=== PATIENT | male | born 1960 | race Caucasian/White ===

== ENCOUNTER 2016-12-15 05:05 | Day surgery (SDC) | payer OTHER, BC ==
[2016-12-08 16:30] VITALS: BMI 33.2
--- NOTE | 2016-12-14 20:57 | PREOP ---
DATE OF ADMISSION: 12/15/2016 DATE OF SURGERY: 12/15/2016 ADMISSION DIAGNOSIS: Posterior cervical cyst. HISTORY OF PRESENT ILLNESS: This 56-year-old male has had a cyst in the posterior neck, which has recurred following previous excisions. It is becoming bothersome. Exam shows a 3-cm subcutaneous mass adjacent to scars from previous surgeries. He is now admitted for excision of this lesion under general anesthesia. PAST MEDICAL HISTORY: Primary medical doctor is Dr. Christian Escamilla. The patient does have a history of hypertension, which is improved. He has also gastroesophageal reflux disease, asthma, and a history of hearing loss. Past surgical history includes multiple knee operations, shoulder and hernia surgery He has recently quit smoking. He is now admitted for excision of this lesion. ALLERGIES TO MEDICATIONS: None known. PRESENT MEDICATIONS: Oxycodone. Bleeding history is negative. Family history is negative for bleeding or anesthesia problems. EXAMINATION: The patient is a well-developed male in no distress. Head is normal. Eyes are clear. Ears are unremarkable. Mouth and throat are unremarkable. The neck has a 3-cm firm mobile lesion in the right upper posterior neck consistent with an epidermal inclusion cyst. This is adjacent to a scar. It is 3 x 4 cm and ovoid, nontender and mobile. There is maybe a small area of skin fixation in the center but no overlying skin changes. The remainder of his head and neck examination is unremarkable. Preoperative labs are pending. IMPRESSION: Right posterior neck mass. Suspect epidermal inclusion cyst. PLAN: Excision of right posterior neck mass under general anesthesia. INFORMED CONSENT: Patient understands the indications, alternatives, nature, risks and benefits of proposed surgery, potential complications including but not limited to anesthesia, bleeding, infection, scar, numbness, and recurrence are discussed in detail. He understands and accepts these risks and wishes to proceed with surgery. Questions are answered fully. FIONA PEREZ M.D. [id number] MTDD
[2016-12-15] MEDS ORDERED: LIDOCAINE 1%/EPI 1:100000 (50 ML MULTI DOSE VIAL) ONE (10:52)
--- NOTE | 2016-12-15 11:06 | HP ---
History & Physical Update - History History: No Change - Physical Physical: No Change - Assessment Assessment: No Change - Plan Plan: No Change
[2016-12-15] MEDS ORDERED: MIDAZOLAM HCL 2 MG/2 ML SINGLE DOSE VIAL ONE ×2 (11:11→11:15)
[2016-12-15] MEDS ORDERED: PROPOFOL 20 ML ONE (11:20)
[2016-12-15] MEDS ORDERED: LIDOCAINE 1%/EPI 1:100000 (50 ML MULTI DOSE VIAL) INF ONE ×2 (11:29)
[2016-12-15] MEDS ORDERED: BACITRACIN 15 GM TUBE TOPICAL OINTMENT ONE (12:00)
[2016-12-15] MEDS ORDERED: oxyCODONE HCL 5 MG TABLET PO PRN (12:12)
--- NOTE | 2016-12-15 12:12 | OP ---
Operative Note - Note: Operative Date: 12/15/16 Pre-Operative Diagnosis: right posterior neck mass Operation: exision of right posterior neck mass with intermediate repair Findings: 3 cm epidermal inclusion cyst scarring Implants: none Post-Operative Diagnosis: Same as Pre-op Surgeon: Blas Mendez Anesthesiologist/[employer] COACH: Светлана Dockery MD Anesthesia: MAC Specimens Removed: right posterior neck mass Estimated Blood Loss (mls): 2 Blood Volume Replaced (mls): 0 Fluid Volume Replaced (mls): 700 Operative Report Dictated: Yes
[2016-12-15] MEDS ORDERED: LACTATED RINGERS SOLUTION 1,000 ML IV SCH (12:15)
[2016-12-15] MEDS ORDERED: ONDANSETRON 4 MG/2 ML VIAL IVPUSH PRN (12:36)
[2016-12-15] MEDS ORDERED: PROMETHAZINE HCL 25 MG/1 ML VIAL IVPUSH PRN (12:36)
[2016-12-15 14:01] VITALS: BP 111/65; PULSE 60; TEMP 98.1
--- NOTE | 2016-12-17 09:43 | PATH ---
Surgical Pathology Report Patient Name: ZACH WALL [facility]. Rec. #: [id number] /Age/Gender: 1960 (Age: 56) / M Account: [id number] Location: [facility] SURGICAL Taken: 12/15/2016 Received: 12/15/2016 Reported: 12/17/2016 Physicians: Blas Mendez M.D. Specimen(s) Received MASS OF RIGHT POSTERIOR NECK Clinical History Right posterior neck mass Final Diagnosis MASS, RIGHT POSTERIOR NECK, EXCISION: EPIDERMAL INCLUSION CYST. Electronically Signed Bob Welsh M.D. Gross Description Received in formalin, labeled "right posterior neck mass" is a 2.0 x 1.8 x 1.4 cm castrejon, focally disrupted cyst containing castrejon sebaceous material. A commercial pest control representative section is submitted in one cassette. 12/15/201612/15/2016
--- NOTE | 2017-02-09 17:35 | OP ---
DATE OF OPERATION: 12/15/2016 PREOPERATIVE DIAGNOSIS: Right posterior neck mass. POSTOPERATIVE DIAGNOSIS: Right posterior neck mass. PROCEDURE: Excision of right posterior neck mass with intermediate repair. SURGEON: Fiona Mendez M.D. ANESTHESIOLOGIST: Светлана Dockery M.D. ANESTHESIA: Monitored anesthesia care. INDICATIONS: This 56-year-old male has had a right posterior neck mass. This has been previously excised, but has recurred. Examination demonstrates a 3 cm posterior neck mass adjacent to a healed surgical scar. Its clinical features suggest epidermal inclusion cyst. He is now brought to surgery for treatment. FINDINGS: A 3 cm epidermal inclusion cyst. Skin and subcutaneous scarring. PROCEDURE: Patient was brought to the operating room and placed on the operating table in the supine position. Monitored anesthesia care was administered. A roll was placed to place him in a slightly rotated position to better expose the right neck. The neck was then prepped and draped in the usual fashion. Lidocaine 1% with epinephrine 1:100,000 was infiltrated into the area of the lesion. An incision was then created along the relaxed skin tension lines over the mass. This was carried down carefully through skin and subcutaneous tissue until the mass was identified. It had the appearance of an epidermal inclusion cyst. Very careful blunt and sharp dissection was then performed to raise flaps above and below and to separate the mass from the surrounding tissue. After dissection from the overlying skin, then the deep surface was then carefully dissected. The mass was then removed and sent to Pathology for routine studies. Hemostasis was achieved with electrocautery. The wound was irrigated. The wound was then closed in layers using interrupted absorbable sutures for the subcutaneous layers to minimize space and then interrupted sutures were placed for the skin. A dry sterile dressing was then placed. Patient tolerated the procedure well. He was then transferred to the PACU in stable condition. ESTIMATED BLOOD LOSS: 2 mL. He received crystalloid during the procedure. The right posterior neck mass was sent to Pathology for studies. There were no complications. FIONA MENDEZ M.D. [id number] MTDD
== END 2016-12-15 13:50 | disposition home or self-care (01) ==
LOC: JASU-SURG 05:05
PROVIDERS: ATTEND Otolaryngology
PROC: 0JB50ZZ Excision of Left Neck Subcutaneous Tissue and Fascia, Open Approach (ICD-10-PCS; 2016-12-15)
PROC: 0JQ50ZZ Repair Left Neck Subcutaneous Tissue and Fascia, Open Approach (ICD-10-PCS; principal; 2016-12-15 09:45)
DX: L72.0 Epidermal cyst (principal)
CPT/HCPCS: 36415; 84132; 88304-TC; 94760